=== PATIENT | female | born 1945 | race Hispanic/Latino ===

== ENCOUNTER 2017-10-04 11:23 | Outpatient (CLI) | payer MEDICARE ==
--- NOTE | 2017-10-05 11:52 | Mammography Report ---
BONE DEXA:10/04/17 11:23:00 CLINICAL: Postmenopausal with a history of right breast cancer and on an aromatase inhibitor. COMPARISON: 10/13/11 TECHNIQUE: Two site bone DEXA performed on an [employer] scanner. FINDINGS: The average BMD of the lumbar spine L1-L3 is 0.791g/cm squared with a T-score of -2.1 and a Z-score of +0.1. This compares to 0.754g/cm squared on the last exam and represents a +4.9% change from the previous baseline. L4 was excluded as an outlier on the comparison exam and was excluded on this exam in order to perform a comparison. The L4 BMD is 0.769g/cm squared with a T score of -2.7 and a Z score of -0.3. The average BMD of the left hip is 0.781g/cm squared with a T-score of -1.3 and a Z-score of +0.3. This compares to 0.827g/cm squared on the last exam and represents a -5.6% change from the previous baseline. In addition, the left femoral neck BMD is 0.593g/cm squared with a T score of -2.3 and a Z score of -0.4 IMPRESSION: 1. WHO classification: Osteopenia with increased fracture risk based on the spine and left hip measurements. 2. Moderate improvement in spine BMD but a moderate decline in left hip BMD compared to the last exam. RECOMMENDATION: Clinical correlation and routine screening. DEFINITIONS: BMD = Bone Mineral Density T-score = BMD related to mean peak bone mass of young adult (mean expressed in Standard Deviation) Z-score = Age matched BMD expressed in SD World Health Organization (WHO) Diagnostic Criteria Normal T-score > -1 SD Osteopenia T-score between -1 and -2.4 SD Osteoporosis T-score -2.5 SD or below NOTE: BMD is not the only risk factor for fracture; also consider factors such as the patient's age, risk of falling, previous osteoporotic fracture, family history of osteoporotic fractures, current smoker, and low body weight. Z-scores are not calculated if >80 years of age.
== END 2017-10-04 11:24 | disposition home or self-care (01) ==
LOC: SPVWC 11:23
PROVIDERS: ATTEND Internal Medicine Hematology & Oncology
DX: M85.88 Other specified disorders of bone density and structure, other site (principal); I74.9 Embolism and thrombosis of unspecified artery; Z78.0 Asymptomatic menopausal state; Z85.3 Personal history of malignant neoplasm of breast
CPT/HCPCS: 77080

== ENCOUNTER 2017-12-08 14:08 | Outpatient (CLI) | payer MEDICARE ==
--- NOTE | 2017-12-09 15:45 | PET Report ---
PET/CT:12/08/17 14:08:00 CLINICAL: Breast cancer restaging. RADIOPHARMACEUTICAL: 15.602mCi F18-FDG. COMPARISON: 11/07/12 PET/CT TECHNIQUE- Following intravenous injection of F-18 FDG and an approximately 60 minute uptake period, CT and PET images from the mid skull to the upper thighs were acquired with the patient in the fasted state. No contrast was administered. The CT protocol used for this PET CT study is designed for attenuation correction and anatomic localization of PET abnormalities. This powder compounder CT is not desired to produce and cannot replace, wnlws-tm-nma-art diagnostic CT scans with specific imaging protocols for different body parts and indications. Plasma glucose at the time of this test: 98g/dl. The standardized uptake values (SUV) are normalized to patient body weight and indicate the highest activity concentration (SUV max) in a given disease site. FINDINGS: Brain--Physiologic FDG uptake in the visualized regions of the brain. Neck--Physiologic FDG uptake in mucosal structures. Chest--Physiologic FDG uptake in mediastinal blood pool and myocardium. Lungs--No abnormal uptake. No pulmonary nodule or mass. Stable right upper lobe post radiation scar. Pleura/pericardium--No abnormal uptake. Thoracic nodes--No abnormal uptake. Hepatobiliary--No abnormal uptake. Liver background SUV mean, as a reference for comparing FDG studies, is 3.7 compared to 4.2 on the last exam. No liver mass. Spleen--No abnormal uptake. Pancreas--No abnormal uptake. Adrenal Glands--No abnormal uptake. Kidneys/Ureters/Bladder--No abnormal uptake. Abdominopelvic Nodes--No abnormal uptake. Bowel/Peritoneum/Mesentery--No abnormal uptake. Pelvic organs--No abnormal uptake. Bones/Soft Tissues--No abnormal uptake. No suspicious bone lesion. Other findings: Status post bilateral mastectomy with implant reconstruction. IMPRESSION- Negative study with no evidence of disease recurrence or metastasis.
== END 2017-12-08 14:09 | disposition home or self-care (01) ==
LOC: PET 14:08
PROVIDERS: ATTEND Internal Medicine Hematology & Oncology
DX: C50.211 Malignant neoplasm of upper-inner quadrant of right female breast (principal); J98.4 Other disorders of lung; Z90.13 Acquired absence of bilateral breasts and nipples
CPT/HCPCS: 78815; 82962; A9552

== ENCOUNTER 2018-06-08 07:02 | Outpatient (CLI) | payer MEDICARE ==
--- NOTE | 2018-06-08 12:03 | PET Report ---
PET/CT:06/08/18 07:02:00 CLINICAL: Breast cancer restaging. RADIOPHARMACEUTICAL: 13.773mCi F18-FDG. COMPARISON: 12/08/17 PET/CT TECHNIQUE- Following intravenous injection of F-18 FDG and an approximately 60 minute uptake period, CT and PET images from the mid skull to the upper thighs were acquired with the patient in the fasted state. No contrast was administered. The CT protocol used for this PET CT study is designed for attenuation correction and anatomic localization of PET abnormalities. This solar installer CT is not desired to produce and cannot replace, khzkm-ze-gzr-art diagnostic CT scans with specific imaging protocols for different body parts and indications. Plasma glucose at the time of this test: 94g/dl. The standardized uptake values (SUV) are normalized to patient body weight and indicate the highest activity concentration (SUV max) in a given disease site. FINDINGS: Brain--Physiologic FDG uptake in the visualized regions of the brain. Neck--Physiologic FDG uptake in mucosal structures. No mass or lymphadenopathy. Chest--Physiologic FDG uptake in mediastinal blood pool and myocardium. Status post bilateral mastectomy with implant reconstruction. No chest wall mass. Lungs--No abnormal uptake. No pulmonary nodule or mass. Stable right upper lobe post radiation scar. Pleura/pericardium--No abnormal uptake. Thoracic nodes--No abnormal uptake. Hepatobiliary--No abnormal uptake. Liver background SUV mean, as a reference for comparing FDG studies, is 3.3 compared to 3.5 on the last exam. No liver mass. Spleen--No abnormal uptake. Pancreas--No abnormal uptake. Adrenal Glands--No abnormal uptake. Kidneys/Ureters/Bladder--No abnormal uptake. Abdominopelvic Nodes--No abnormal uptake. Bowel/Peritoneum/Mesentery--No abnormal uptake. Pelvic organs--No abnormal uptake. Bones/Soft Tissues--Interval development of numerous FDG avid and non-FDG avid lytic skeletal lesions involving the cervical, thoracic and lumbar spine, left ribs, left humeral head, sacrum, and bilateral pelvic bones. The most FDG avid lesion is a confluence of small lytic lesions of the posterior right iliac bone with SUV 7.3. This lesion measures approximately 4.0 x 2.5 cm. An 11 mm round lytic lesion at the base of the odontoid with SUV 3.6 demonstrates erosion of the posterior cortex of C2. Several additional smaller non-FDG avid lytic cervical lesions. 2 FDG avid left rib lesions and a healing fracture of the left sixth rib. This fracture as well as all of the skeletal lesions were not apparent on the last exam. IMPRESSION- 1. Interval development of extensive skeletal metastasis with both FDG avid and non-FDG avid lytic skeletal lesions involving the spine, left humerus, left ribs, sacrum, and bilateral pelvic bones. 2. Destruction of the posterior cortex of the C2 vertebral body by the FDG avid lytic lesion at the base of the odontoid. This raises suspicion for spinal canal extension but there are no lesions identified on this exam. Consider MRI of the cervical, thoracic and lumbar spine. 3. No evidence of desmond, pulmonary or hepatic metastasis.
== END 2018-06-08 07:03 | disposition home or self-care (01) ==
LOC: PET 07:02
PROVIDERS: ATTEND Internal Medicine Hematology & Oncology
DX: C50.211 Malignant neoplasm of upper-inner quadrant of right female breast (principal)
CPT/HCPCS: 78815; 82962; A9552

== ENCOUNTER 2018-06-22 08:31 | Day surgery (SDC) | payer MEDICARE ==
[2018-06-22 09:15] LABS: Basophils # (Auto) 0.1 K/mm3 (0.0-0.1); Basophils % (Auto) 1.3 % (0.0-1.8); Eosinophils # (Auto) 0.2 K/mm3 (0.0-0.4); Eosinophils % (Auto) 4.3 % (0.0-4.3); Hematocrit 41.8 % (30.3-42.9); Hemoglobin 14.2 gm/dl (10.1-14.3); Lymphocytes # (Auto) 1.7 K/mm3 (1.2-5.4); Lymphocytes % (Auto) 29.6 % (13.4-35.0); Mean Corpuscular HGB Conc 34 % (30-34); Mean Corpuscular Volume 89 fl (79-97); Monocytes # (Auto) 0.4 K/mm3 (0.0-0.8); Monocytes % (Auto) 7.7 % (0.0-7.3); Platelet Count 246 K/mm3 (140-440); Red Cell Distribution Width 12.9 % (13.2-15.2)
[2018-06-22 09:37] LABS: INR 0.96 (0.87-1.13)
[2018-06-22] MEDS ORDERED: VERSED IV ONE (11:00)
[2018-06-22] MEDS ORDERED: SUBLIMAZE IV ONE (11:00)
--- NOTE | 2018-06-22 11:07 | Cat Scan Report ---
CT BIOPSY BONE MARROW: HISTORY: Malignant neoplasm of right breast, new bone lesions on recent PET/CT, partially lytic right iliac bone mass. DESCRIPTION OF PROCEDURE: Informed consent was obtained. Sterile technique was utilized. Conscious sedation was accomplished with Versed and fentanyl. The patient was sedated for 15 minutes. Independent cardiorespiratory monitoring by RN. Intra-observer time of [address] guidance, an introducer needle was advanced into the right posterior iliac bone within an approximate 4.0 x 2.5 cm partially lytic lesion. 2 fine needle aspirations and one 10-gauge bone core was obtained. Pathology was present and deemed the samples adequate. The patient tolerated the procedure without difficulty. IMPRESSION: Successful CT guided biopsy and fine needle aspiration of the right posterior iliac bone lesion as described above.
[2018-06-22] MEDS ORDERED: NACL 0.9% 1000 ML 1,000 ML IV SCH (13:00)
[2018-06-22 13:09] VITALS: BP 102/55
== END 2018-06-22 13:05 | disposition home or self-care (01) ==
LOC: CATHLABREC 08:31
PROVIDERS: ATTEND Internal Medicine Hematology & Oncology
DX: C79.51 Secondary malignant neoplasm of bone (principal); I74.9 Embolism and thrombosis of unspecified artery; C50.211 Malignant neoplasm of upper-inner quadrant of right female breast; Z79.899 Other long term (current) drug therapy; Z98.49 Cataract extraction status, unspecified eye; Z90.13 Acquired absence of bilateral breasts and nipples; Z87.440 Personal history of urinary (tract) infections; Z80.8 Family history of malignant neoplasm of other organs or systems; Z82.49 Family history of ischemic heart disease and other diseases of the circulatory system; Z85.89 Personal history of malignant neoplasm of other organs and systems
CPT/HCPCS: 36415; 38221; 77012; 85025; 85610; 85730; 88173; 88305; 88311; 88333; 88341; 88342; J2250; J3010; 88307

== ENCOUNTER 2018-12-21 06:47 | Outpatient (CLI) | payer MEDICARE ==
--- NOTE | 2018-12-21 11:02 | PET Report ---
PET/CT CLINICAL: Breast cancer restaging. RADIOPHARMACEUTICAL: 15.334 mCi F18-FDG. COMPARISON: 06/08/2018 PET/CT TECHNIQUE- Following intravenous injection of F-18 FDG and an approximately 60 minute uptake period , CT and PET images from the mid skull to the upper thighs were acquired with the patient in the fas carmel state. No contrast was administered. The CT protocol used for this PET CT study is designed for attenuation correction and anatomic localization of PET abnormalities. This proof carrier CT is not korey ired to produce and cannot replace, iazaz-yn-rym-art diagnostic CT scans with specific imaging prot ocols for different body parts and indications. The standardized uptake values (SUV) are normalized to patient body weight and indicate the highest activity concentration (SUV max) in a given disease site. Plasma glucose at the time of this test: 90 g/dL FINDINGS: Brain--Physiologic FDG uptake in the visualized regions of the brain. Neck--Physiologic FDG uptake in mucosal structures. No mass or lymphadenopathy. Chest--Physiologic FDG uptake in mediastinal blood pool and myocardium. Status post bilateral mastec gabby with implant reconstruction. No chest wall mass. Lungs--No abnormal uptake. No pulmonary nodule or mass. Stable right upper lobe post radiation scar. Pleura/pericardium--No abnormal uptake. Thoracic nodes--No abnormal uptake. Hepatobiliary--No abnormal uptake. Liver background SUV mean, as a reference for comparing FDG studi es, is 2.5 compared to 03.3 on the last exam. No liver mass. Spleen--No abnormal uptake. Pancreas--No abnormal uptake. Adrenal Glands--No abnormal uptake. Kidneys/Ureters/Bladder--No abnormal uptake. Abdominopelvic Nodes--No abnormal uptake. Bowel/Peritoneum/Mesentery--No abnormal uptake. Pelvic organs--No abnormal uptake. Bones/Soft Tissues--Numerous mixed density FDG avid skeletal lesions have increased in number and rubi e have increased in size. However, all lesions have decreased FDG uptake. The most FDG avid involves the posterior right iliac bone with SUV 2.0 compared to 7.3 on the last exam. This lytic lesion now m easures 2.6 cm maximum. The previously identified C2 lesion at the base of the odontoid has become sc lerotic. However, there are more numerous and larger lytic lesions of the cervical, thoracic and lumb ar spine. IMPRESSION: A positive response to therapy with decreased FDG uptake in all skeletal lesions. Despite this decrease in FDG uptake, the number of skeletal lesions has increased and numerous lesions have increased in size compared to the last exam. No evidence of hepatic, pulmonary or desmond metastasis. Signer Name: Rhys Hare MD Signed: 12/21/2018 10:57 AM Workstation Name: [id number]
== END 2018-12-21 06:48 | disposition home or self-care (01) ==
LOC: PET 06:47
PROVIDERS: ATTEND Internal Medicine Hematology & Oncology
DX: C50.211 Malignant neoplasm of upper-inner quadrant of right female breast (principal); I74.9 Embolism and thrombosis of unspecified artery; Z79.899 Other long term (current) drug therapy
CPT/HCPCS: 78815; 82962; A9552

== ENCOUNTER 2019-07-11 16:03 | Outpatient (CLI) | payer MEDICARE ==
--- NOTE | 2019-07-11 16:28 | XRay Report ---
CHEST 2 VIEWS INDICATION / CLINICAL INFORMATION: COUGH, SHORTNESS OF BREATH. COMPARISON: None available. FINDINGS: SUPPORT DEVICES: None. HEART / MEDIASTINUM: No significant abnormality. LUNGS / PLEURA: No significant pulmonary or pleural abnormality. No pneumothorax. ADDITIONAL FINDINGS: Several old healed left rib fractures. IMPRESSION: 1. No acute findings. Signer Name: Richard Sanchez MD Signed: 07/11/2019 4:24 PM Workstation Name: [id number]
== END 2019-07-11 16:04 | disposition home or self-care (01) ==
LOC: SPVIMAG 16:03
PROVIDERS: ATTEND Internal Medicine Hematology & Oncology
DX: R06.02 Shortness of breath (principal); C50.211 Malignant neoplasm of upper-inner quadrant of right female breast; I74.9 Embolism and thrombosis of unspecified artery; R05 Cough; Z87.81 Personal history of (healed) traumatic fracture
CPT/HCPCS: 71046